=== PATIENT | male | born 1960 | race Caucasian/White ===

== ENCOUNTER → 2019-08-25 | Outpatient (CLI) | payer OTHER ==
[~2019-08-25] MED LIST: ATENOLOL 100MG100 MG PO; FLONASE 0.05%50 MCG NARES; LEXAPRO 10 MG T10 M1 PO; LOSARTAN POTAS100 MG PO; NEURONTIN 300M300 M2 PO
== END ==
LOC: M.PC 02:05
DX: M47.816 Spondylosis without myelopathy or radiculopathy, lumbar region (principal); M41.86 Other forms of scoliosis, lumbar region; M51.36 Other intervertebral disc degeneration, lumbar region; M25.551 Pain in right hip